=== PATIENT | male | born 1990 | race Caucasian/White ===

== ENCOUNTER 2020-10-18 23:15 | Inpatient (IN) | payer MEDICAID, OTHER ==
[~2020-10-18] VITALS: Ht 177.8 cm; Wt 74.0 kg
[2020-10-18] MEDS ORDERED: ILOP2TAB2 PO (23:29)
[2020-10-18] MEDS ORDERED: NICOTINE POLACRILEX 2 MG LOZENGE PO ONE (23:30)
[2020-10-18 23:36] LABS: BASOPHILS % (AUTO) 0.8 % (0.0-2.0); EOSINOPHILS % (AUTO) 3.3 % (1.0-6.0); HEMATOCRIT 35.9 % (41-53); HEMOGLOBIN 11.7 g/dL (13.5-17.5); LYMPHOCYTES # (AUTO) 1.5 K/uL (1.0-4.8); LYMPHOCYTES % (AUTO) 27.8 % (22.0-44.0); MEAN CORPUSCULAR HEMOGLOBIN 27.4 pg (26.0-34.0); MEAN CORPUSCULAR HGB CONC 32.4 G/dL (31.0-37.0); MEAN CORPUSCULAR VOLUME 85 fL (80-100); MONOCYTES # (AUTO) 0.4 K/uL (0.1-1.0); MONOCYTES % (AUTO) 7.1 % (2.0-9.0); NEUTROPHILS # (AUTO) 3.3 K/uL (1.8-7.7); PLATELET COUNT (AUTO) 211 K/uL (150-450); RED BLOOD CELL COUNT(AUTO) 4.25 MIL/uL (4.50-5.90); RED CELL DISTRIBUTION WIDTH 16.1 % (11.5-14.5)
[2020-10-18 23:46] LABS: ANION GAP 11 mmol/L (8-16); CALCIUM, TOTAL 8.7 mg/dL (8.8-10.5); CARBON DIOXIDE 28 mmol/L (22-29); CHLORIDE 102 mmol/L (98-107); GLOMERULAR FILTR. RATE CALC > 60 mL/min (>60); GLUCOSE,RANDOM 95 mg/dL (70-110); POTASSIUM 3.9 mmol/L (3.5-5.1); SODIUM SERUM 141 mmol/L (136-145); UREA NITROGEN, BLOOD 9 mg/dL (7-18)
[2020-10-18 23:51] LABS: ALANINE AMINOTRANSFERASE 21 U/L (12-78); ALBUMIN 4.1 g/dL (3.4-5.0); ALKALINE PHOSPHATASE 81 U/L (46-116); ASPARTATE AMINOTRANSFERASE 17 U/L (15-37); BILIRUBIN,TOTAL 0.4 mg/dL (0.1-1.0); TOTAL PROTEIN, SERUM 7.2 g/dL (6.4-8.2)
[2020-10-19 00:01] LABS: COVID AG,FIA SOURCE NASOPHARYNGEAL
[2020-10-19 00:02] LABS: AMPHET/METH SCREEN,URINE NEGATIVE (NEGATIVE); BARBITURATE SCREEN, URINE NEGATIVE (NEGATIVE); BENZODIAZEPINES SCREEN,URINE NEGATIVE (NEGATIVE); CANNABINOID SCREEN,URINE NEGATIVE (NEGATIVE); COCAINE SCREEN,URINE NEGATIVE (NEGATIVE); METHADONE SCREEN, URINE NEGATIVE (NEGATIVE); OPIATE SCREEN,URINE NEGATIVE (NEGATIVE)
[2020-10-19 00:04] LABS: PHENCYCLIDINE SCREEN,URINE NEGATIVE (NEGATIVE)
[2020-10-19] MEDS ORDERED: HALOPERIDOL 5 MG TABLET PO PRN (00:30)
[2020-10-19] MEDS ORDERED: ZOLPIDEM TARTRATE 10 MG TABLET PO PRN (00:30)
[2020-10-19 02:48] LABS: APPEARANCE,URINE CLEAR (CLEAR); BILIRUBIN,URINE NEGATIVE (NEGATIVE); GLUCOSE, URINE (UA) NEGATIVE (NEGATIVE); KETONES,URINE NEGATIVE (NEGATIVE); LEUKOCYTE ESTERASE ,URINE NEGATIVE (NEGATIVE); NITRATE,URINE NEGATIVE (NEGATIVE); OCCULT BLOOD,URINE NEGATIVE (NEGATIVE); PH,URINE 6.5 (5.0-8.0); PROTEIN,URINE NEGATIVE (NEGATIVE); UROBILINOGEN,URINE 0.2 mg/dL (<=1.0)
[2020-10-19 04:45] VITALS: BP 113/67
[2020-10-19 08:25] VITALS: BP 132/88
[2020-10-19] MEDS ORDERED: NICOTINE 21 MG/24 HOUR PATCH TD ONE (10:30)
[2020-10-19] MEDS: NICOTINE 21 MG/24 HOUR PATCH TD SCH (11:12)
[2020-10-19] MEDS ORDERED: IBUPROFEN 600 MG TABLET PO PRN (15:30)
[2020-10-19] MEDS ORDERED: BACITRACIN 28 GM OINTMENT TP PRN (15:30)
[2020-10-19] MEDS ORDERED: ONDANSETRON HCL 4 MG TABLET PO PRN (15:30)
[2020-10-19] MEDS ORDERED: LOPERAMIDE HCL 2 MG CAPSULE PO PRN (15:30)
[2020-10-19] MEDS ORDERED: DOCUSATE SODIUM 100 MG CAPSULE PO PRN (15:30)
[2020-10-19] MEDS ORDERED: MAGNESIUM HYDROXIDE SUSPENSION 30 ML UDCUP PO PRN (15:30)
[2020-10-19] MEDS ORDERED: OMEPRAZOLE 20 MG CAPSULE PO PRN (15:30)
[2020-10-19] MEDS ORDERED: ALBUTEROL SULFATE HFA 90 MCG/PUFF 8 GM INHALER IH PRN (15:30)
[2020-10-19] MEDS ORDERED: PETROLATUM,WHITE 28 GM JELLY TP PRN (15:30)
[2020-10-19] MEDS ORDERED: ACETAMINOPHEN 325 MG TABLET PO PRN (15:30)
[2020-10-19] MEDS ORDERED: CloNIDine HCL 0.1 MG TABLET PO PRN (15:30)
[2020-10-19] MEDS: ILOPERIDONE 4 MG TABLET PO SCH (16:31)
[2020-10-19 16:32] VITALS: BP 110/62
[2020-10-19] MEDS: MAG HYDROX/AL HYDROX/SIMETH ES 30 ML SUSPENSION UDCUP PO PRN (17:40)
[2020-10-20 05:49] LABS: CHOL/HDL RATIO 2.7 (4.2-7.3)
[2020-10-20] MEDS: BENZOCAINE/MENTHOL LOZENGE PO PRN ×4 (06:10→19:00)
[2020-10-20] MEDS: ILOPERIDONE 4 MG TABLET PO SCH ×2 (07:53→16:07)
[2020-10-20] MEDS: NICOTINE 21 MG/24 HOUR PATCH TD SCH ×2 (07:53→11:04)
[2020-10-20 08:30] VITALS: BP 138/84
[2020-10-20 16:00] VITALS: BP 118/69
[2020-10-20] MEDS: LORazepam 2 MG TABLET PO PRN (17:42)
[2020-10-21 00:01] VITALS: BP 130/80
[2020-10-21 00:09] VITALS: BP 125/70
[2020-10-21] MEDS: MAG HYDROX/AL HYDROX/SIMETH ES 30 ML SUSPENSION UDCUP PO PRN (00:09)
[2020-10-21] MEDS: ILOPERIDONE 4 MG TABLET PO SCH (08:03)
[2020-10-21] MEDS: NICOTINE 21 MG/24 HOUR PATCH TD SCH (08:07)
[2020-10-21] MEDS: BENZOCAINE/MENTHOL LOZENGE PO PRN (08:14)
[2020-10-21 08:30] VITALS: BP 123/76
[2020-10-21] MEDS: LORazepam 2 MG TABLET PO PRN (09:14)
== END 2020-10-21 12:30 | disposition home or self-care (01) | DRG 750 ==
LOC: EMS 23:21 → 3EI 10-19 00:25
PROVIDERS: ADMIT Psychiatry & Neurology Psychiatry; ATTEND Psychiatry & Neurology Psychiatry
DX: F25.1 Schizoaffective disorder, depressive type (principal); R45.851 Suicidal ideations; Z59.0 Homelessness; K59.00 Constipation, unspecified; F12.10 Cannabis abuse, uncomplicated; Z20.822 Contact with and (suspected) exposure to COVID-19; F41.9 Anxiety disorder, unspecified; G47.00 Insomnia, unspecified; Z88.8 Allergy status to other drugs, medicaments and biological substances; Z79.899 Other long term (current) drug therapy; Z72.0 Tobacco use; Z71.6 Tobacco abuse counseling; Z71.51 Drug abuse counseling and surveillance of drug abuser
CPT/HCPCS: 80053; 80061; 81003; 85025; 99285; A9575; G0480; J3535

== ENCOUNTER 2020-11-15 17:51 | Inpatient (IN) | payer MEDICAID, OTHER ==
[~2020-11-15] VITALS: Ht 167.6 cm; Wt 70.8 kg
[~2020-11-15 17:51] MED LIST: ILOP2TAB2 PO
[2020-11-15 18:27] LABS: EOSINOPHILS % (AUTO) 4.8 % (1.0-6.0); HEMATOCRIT 36.8 % (41-53); HEMOGLOBIN 11.9 g/dL (13.5-17.5); LYMPHOCYTES # (AUTO) 1.2 K/uL (1.0-4.8); LYMPHOCYTES % (AUTO) 24.1 % (22.0-44.0); MEAN CORPUSCULAR HEMOGLOBIN 27.1 pg (26.0-34.0); MEAN CORPUSCULAR HGB CONC 32.4 G/dL (31.0-37.0); MEAN CORPUSCULAR VOLUME 84 fL (80-100); MONOCYTES # (AUTO) 0.3 K/uL (0.1-1.0); MONOCYTES % (AUTO) 5.9 % (2.0-9.0); NEUTROPHILS # (AUTO) 3.1 K/uL (1.8-7.7); NEUTROPHILS % (AUTO) 64.2 % (40.0-70.0); PLATELET COUNT (AUTO) 218 K/uL (150-450); RED CELL DISTRIBUTION WIDTH 15.6 % (11.5-14.5)
[2020-11-15 18:36] LABS: ANION GAP 16 mmol/L (8-16); CALCIUM, TOTAL 9.3 mg/dL (8.8-10.5); CARBON DIOXIDE 29 mmol/L (22-29); CHLORIDE 102 mmol/L (98-107); CREATININE 1.19 mg/dL (0.60-1.30); GLOMERULAR FILTR. RATE CALC > 60 mL/min (>60); GLUCOSE,RANDOM 108 mg/dL (70-110); POTASSIUM 4.6 mmol/L (3.5-5.1); SODIUM SERUM 147 mmol/L (136-145); UREA NITROGEN, BLOOD 12 mg/dL (7-18)
[2020-11-15 18:42] LABS: ALANINE AMINOTRANSFERASE 20 U/L (12-78); ALBUMIN 4.1 g/dL (3.4-5.0); ALKALINE PHOSPHATASE 74 U/L (46-116); ASPARTATE AMINOTRANSFERASE 17 U/L (15-37); BILIRUBIN,TOTAL 0.5 mg/dL (0.1-1.0); TOTAL PROTEIN, SERUM 7.5 g/dL (6.4-8.2)
[2020-11-15 19:18] LABS: AMPHET/METH SCREEN,URINE NEGATIVE (NEGATIVE); BARBITURATE SCREEN, URINE POSITIVE (NEGATIVE); BENZODIAZEPINES SCREEN,URINE NEGATIVE (NEGATIVE); CANNABINOID SCREEN,URINE NEGATIVE (NEGATIVE); COCAINE SCREEN,URINE NEGATIVE (NEGATIVE); METHADONE SCREEN, URINE NEGATIVE (NEGATIVE); OPIATE SCREEN,URINE NEGATIVE (NEGATIVE); PHENCYCLIDINE SCREEN,URINE NEGATIVE (NEGATIVE)
[2020-11-15] MEDS ORDERED: NICOTINE 7 MG/24 HOUR PATCH TD ONE (20:00)
[2020-11-15] MEDS ORDERED: DiphenhydrAMINE HCL 25 MG CAPSULE PO ONE (20:15)
[2020-11-15] MEDS ORDERED: HALOPERIDOL 5 MG TABLET PO ONE (20:15)
[2020-11-15] MEDS ORDERED: LORazepam 2 MG TABLET PO ONE (20:15)
[2020-11-15 21:16] LABS: COVID AG,FIA SOURCE NASOPHARYNGEAL
[2020-11-15] MEDS ORDERED: ONDANSETRON HCL 4 MG TABLET PO ONE (23:00)
[2020-11-16] MEDS: ZOLPIDEM TARTRATE 10 MG TABLET PO PRN (01:35)
[2020-11-16 02:44] LABS: APPEARANCE,URINE CLEAR (CLEAR); BILIRUBIN,URINE NEGATIVE (NEGATIVE); GLUCOSE, URINE (UA) NEGATIVE (NEGATIVE); KETONES,URINE 15 mg/dL (NEGATIVE); LEUKOCYTE ESTERASE ,URINE MODERATE (NEGATIVE); NITRATE,URINE NEGATIVE (NEGATIVE); OCCULT BLOOD,URINE NEGATIVE (NEGATIVE); PH,URINE 5.5 (5.0-8.0); PROTEIN,URINE NEGATIVE (NEGATIVE); UROBILINOGEN,URINE 0.2 mg/dL (<=1.0)
[2020-11-16 03:22] LABS: BACTERIA,URINE Rare /HPF (None Seen); SQUAMOUS EPITHELIAL CELL,UR Rare /LPF (None Seen)
[2020-11-16 10:03] LABS: CHOL/HDL RATIO 2.3 (4.2-7.3)
[2020-11-16] MEDS: LORazepam 2 MG TABLET PO PRN (12:50)
[2020-11-16] MEDS: HALOPERIDOL 5 MG TABLET PO PRN (12:51)
[2020-11-16] MEDS ORDERED: NICOTINE POLACRILEX 4 MG LOZENGE PO ONE (16:30)
[2020-11-16 20:11] VITALS: BP 141/72
[2020-11-17] MEDS ORDERED: ALBUTEROL SULFATE HFA 90 MCG/PUFF 8 GM INHALER IH PRN (06:15)
[2020-11-17] MEDS ORDERED: MAGNESIUM HYDROXIDE SUSPENSION 30 ML UDCUP PO PRN (06:15)
[2020-11-17] MEDS ORDERED: OMEPRAZOLE 20 MG CAPSULE PO PRN (06:15)
[2020-11-17] MEDS ORDERED: ONDANSETRON HCL 4 MG TABLET PO PRN (06:15)
[2020-11-17] MEDS ORDERED: BACITRACIN 28 GM OINTMENT TP PRN (06:15)
[2020-11-17] MEDS ORDERED: PETROLATUM,WHITE 28 GM JELLY TP PRN (06:15)
[2020-11-17] MEDS ORDERED: LOPERAMIDE HCL 2 MG CAPSULE PO PRN (06:15)
[2020-11-17] MEDS ORDERED: ACETAMINOPHEN 325 MG TABLET PO PRN (06:15)
[2020-11-17] MEDS ORDERED: DOCUSATE SODIUM 100 MG CAPSULE PO PRN (06:15)
[2020-11-17] MEDS ORDERED: CloNIDine HCL 0.1 MG TABLET PO PRN (06:15)
[2020-11-17] MEDS ORDERED: IBUPROFEN 600 MG TABLET PO PRN (06:15)
[2020-11-17] MEDS ORDERED: MAG HYDROX/AL HYDROX/SIMETH ES 30 ML SUSPENSION UDCUP PO PRN (06:15)
[2020-11-17] MEDS ORDERED: BENZOCAINE/MENTHOL LOZENGE PO PRN (06:15)
[2020-11-17 08:00] VITALS: BP 132/70
[2020-11-17] MEDS: ILOPERIDONE 4 MG TABLET PO SCH ×2 (12:12→16:21)
[2020-11-17] MEDS: NICOTINE 7 MG/24 HOUR PATCH TD SCH (12:12)
[2020-11-17] MEDS: LORazepam 2 MG TABLET PO PRN ×2 (14:33→18:54)
[2020-11-17 16:12] VITALS: BP 121/66
[2020-11-17] MEDS: ZOLPIDEM TARTRATE 10 MG TABLET PO PRN (19:59)
[2020-11-18 08:00] VITALS: BP 131/59
[2020-11-18] MEDS: ILOPERIDONE 4 MG TABLET PO SCH ×2 (09:47→16:26)
[2020-11-18] MEDS: NICOTINE 7 MG/24 HOUR PATCH TD SCH (09:50)
[2020-11-18] MEDS: HALOPERIDOL 5 MG TABLET PO PRN ×2 (11:29→18:31)
[2020-11-18 16:15] VITALS: BP 113/56
[2020-11-18] MEDS: ZOLPIDEM TARTRATE 10 MG TABLET PO PRN (20:16)
[2020-11-19 08:00] VITALS: BP 98/64
[2020-11-19] MEDS: ILOPERIDONE 4 MG TABLET PO SCH ×2 (10:07→16:04)
[2020-11-19] MEDS: NICOTINE 7 MG/24 HOUR PATCH TD SCH (10:08)
[2020-11-19] MEDS: HALOPERIDOL 5 MG TABLET PO PRN ×2 (16:03→20:09)
[2020-11-19 16:20] VITALS: BP 123/73
[2020-11-19] MEDS: ZOLPIDEM TARTRATE 10 MG TABLET PO PRN (20:09)
[2020-11-20 08:28] VITALS: BP 116/64
[2020-11-20] MEDS: NICOTINE 7 MG/24 HOUR PATCH TD SCH (08:41)
[2020-11-20] MEDS: ILOPERIDONE 4 MG TABLET PO SCH (08:41)
== END 2020-11-20 16:15 | disposition home or self-care (01) | DRG 750 ==
LOC: EMS 17:53 → 3EI 11-16 18:55
PROVIDERS: ADMIT Psychiatry & Neurology Psychiatry; ATTEND Psychiatry & Neurology Psychiatry
DX: F25.1 Schizoaffective disorder, depressive type (principal); R45.851 Suicidal ideations; F41.9 Anxiety disorder, unspecified; K59.00 Constipation, unspecified; G47.00 Insomnia, unspecified; Z88.1 Allergy status to other antibiotic agents; Z20.822 Contact with and (suspected) exposure to COVID-19
CPT/HCPCS: 80053; 80061; 81001; 85025; 87081; 87086; 99285; A9575; G0480; Q0162

== ENCOUNTER 2022-04-17 01:32 | Inpatient (IN) | payer MEDICAID ==
[~2022-04-17] VITALS: Ht 177.8 cm; Wt 74.2 kg
[2022-04-17 02:16] LABS: BASOPHILS % (AUTO) 0.6 % (0.0-2.0); EOSINOPHILS % (AUTO) 1.5 % (1.0-6.0); HEMATOCRIT 40.2 % (41-53); HEMOGLOBIN 13.4 g/dL (13.5-17.5); LYMPHOCYTES # (AUTO) 1.2 K/uL (1.0-4.8); LYMPHOCYTES % (AUTO) 20.6 % (22.0-44.0); MEAN CORPUSCULAR HEMOGLOBIN 28.2 pg (26.0-34.0); MEAN CORPUSCULAR HGB CONC 33.3 G/dL (31.0-37.0); MEAN CORPUSCULAR VOLUME 85 fL (80-100); MONOCYTES # (AUTO) 0.5 K/uL (0.1-1.0); MONOCYTES % (AUTO) 8.8 % (2.0-9.0); NEUTROPHILS # (AUTO) 4.1 K/uL (1.8-7.7); NEUTROPHILS % (AUTO) 68.5 % (40.0-70.0); PLATELET COUNT (AUTO) 294 K/uL (150-450); RED BLOOD CELL COUNT(AUTO) 4.75 MIL/uL (4.50-5.90); RED CELL DISTRIBUTION WIDTH 15.3 % (11.5-14.5)
[2022-04-17 02:23] LABS: ANION GAP 10 mmol/L (8-16); CARBON DIOXIDE 31 mmol/L (22-29); CHLORIDE 99 mmol/L (98-107); CREATININE 1.12 mg/dL (0.60-1.30); GLUCOSE,RANDOM 113 mg/dL (70-110); POTASSIUM 4.3 mmol/L (3.5-5.1); SODIUM SERUM 140 mmol/L (136-145); UREA NITROGEN, BLOOD 8 mg/dL (7-18)
[2022-04-17 02:28] LABS: ALANINE AMINOTRANSFERASE 109 U/L (12-78); ALBUMIN 4.2 g/dL (3.4-5.0); ALKALINE PHOSPHATASE 87 U/L (46-116); ASPARTATE AMINOTRANSFERASE 239 U/L (15-37); BILIRUBIN,TOTAL 0.3 mg/dL (0.1-1.0); TOTAL PROTEIN, SERUM 8.1 g/dL (6.4-8.2)
[2022-04-17 02:33] LABS: GLOMERULAR FILTR. RATE CALC > 60 mL/min (>60)
[2022-04-17 03:09] LABS: COVID AG,FIA SOURCE NASOPHARYNGEAL
[2022-04-17 03:19] LABS: AMPHET/METH SCREEN,URINE POSITIVE (NEGATIVE); BARBITURATE SCREEN, URINE NEGATIVE (NEGATIVE); BENZODIAZEPINES SCREEN,URINE NEGATIVE (NEGATIVE); CANNABINOID SCREEN,URINE POSITIVE (NEGATIVE); COCAINE SCREEN,URINE NEGATIVE (NEGATIVE); METHADONE SCREEN, URINE NEGATIVE (NEGATIVE); OPIATE SCREEN,URINE NEGATIVE (NEGATIVE)
[2022-04-17 03:21] LABS: PHENCYCLIDINE SCREEN,URINE NEGATIVE (NEGATIVE)
[2022-04-17] MEDS ORDERED: ONDANSETRON HCL 4 MG TABLET PO ONE (03:30)
[2022-04-17] MEDS ORDERED: HALOPERIDOL 5 MG TABLET PO PRN (03:30)
[2022-04-17] MEDS: LORazepam 2 MG TABLET PO PRN ×2 (04:26→14:55)
[2022-04-17] MEDS ORDERED: NICOTINE 21 MG/24 HOUR PATCH TD ONE (15:15)
[2022-04-18] MEDS ORDERED: ONDANSETRON HCL 4 MG TABLET PO ONE (00:15)
[2022-04-18] MEDS: ZOLPIDEM TARTRATE 10 MG TABLET PO PRN (00:59)
[2022-04-18] MEDS: LORazepam 2 MG TABLET PO PRN (13:13)
[2022-04-19 13:06] VITALS: BP 150/79
[2022-04-19] MEDS ORDERED: PNEUMOCOCCAL VACCINE POLYVALENT 0.5 ML VIAL [PPSV23] IM. ONE (15:00)
[2022-04-19 16:30] VITALS: BP 145/72
[2022-04-19] MEDS: LORazepam 2 MG TABLET PO PRN (20:50)
[2022-04-19] MEDS ORDERED: ALBUTEROL SULFATE HFA 90 MCG/PUFF 8 GM INHALER IH PRN (21:30)
[2022-04-19] MEDS ORDERED: GuaiFENesin/D-METHORPHAN [SUGAR-FREE] 200-20MG/10 ML SYRUP UDCUP PO PRN (21:30)
[2022-04-19] MEDS ORDERED: PETROLATUM,WHITE 28 GM JELLY TP PRN (21:30)
[2022-04-19] MEDS ORDERED: IBUPROFEN 400 MG TABLET PO PRN (21:30)
[2022-04-19] MEDS ORDERED: NICOTINE 14 MG/24 HOUR PATCH TD PRN (21:30)
[2022-04-19] MEDS ORDERED: CloNIDine HCL 0.1 MG TABLET PO PRN (21:30)
[2022-04-19] MEDS ORDERED: MAGNESIUM HYDROXIDE SUSPENSION 30 ML UDCUP PO PRN (21:30)
[2022-04-19] MEDS ORDERED: MAG HYDROX/AL HYDROX/SIMETH ES 30 ML SUSPENSION UDCUP PO PRN (21:30)
[2022-04-19] MEDS ORDERED: ACETAMINOPHEN 325 MG TABLET PO PRN (21:30)
[2022-04-19] MEDS ORDERED: ONDANSETRON HCL 4 MG TABLET PO PRN (21:30)
[2022-04-19] MEDS ORDERED: DOCUSATE SODIUM 100 MG CAPSULE PO PRN (21:30)
[2022-04-19] MEDS ORDERED: LOPERAMIDE HCL 2 MG CAPSULE PO PRN (21:30)
[2022-04-19] MEDS: ZOLPIDEM TARTRATE 10 MG TABLET PO PRN (21:43)
[2022-04-20 07:24] LABS: EOSINOPHILS % (AUTO) 7.6 % (1.0-6.0); HEMATOCRIT 38.6 % (41-53); HEMOGLOBIN 12.4 g/dL (13.5-17.5); LYMPHOCYTES # (AUTO) 1.3 K/uL (1.0-4.8); LYMPHOCYTES % (AUTO) 29.1 % (22.0-44.0); MEAN CORPUSCULAR HEMOGLOBIN 27.6 pg (26.0-34.0); MEAN CORPUSCULAR HGB CONC 32.2 G/dL (31.0-37.0); MEAN CORPUSCULAR VOLUME 86 fL (80-100); MONOCYTES # (AUTO) 0.4 K/uL (0.1-1.0); MONOCYTES % (AUTO) 8.8 % (2.0-9.0); NEUTROPHILS # (AUTO) 2.4 K/uL (1.8-7.7); NEUTROPHILS % (AUTO) 53.5 % (40.0-70.0); PLATELET COUNT (AUTO) 253 K/uL (150-450); RED CELL DISTRIBUTION WIDTH 15.6 % (11.5-14.5)
[2022-04-20 07:32] LABS: HEMOGLOBIN A1C 5.5 % (3.8-5.6)
[2022-04-20 08:01] LABS: ALANINE AMINOTRANSFERASE 81 U/L (12-78); ALBUMIN 3.6 g/dL (3.4-5.0); ALKALINE PHOSPHATASE 83 U/L (46-116); ANION GAP 6 mmol/L (8-16); ASPARTATE AMINOTRANSFERASE 139 U/L (15-37); BILIRUBIN,TOTAL 0.5 mg/dL (0.1-1.0); CALCIUM, TOTAL 8.9 mg/dL (8.8-10.5); CARBON DIOXIDE 30 mmol/L (22-29); CHLORIDE 103 mmol/L (98-107); CREATININE 1.05 mg/dL (0.60-1.30); GLUCOSE,RANDOM 91 mg/dL (70-110); POTASSIUM 4.2 mmol/L (3.5-5.1); SODIUM SERUM 139 mmol/L (136-145); THYROID STIMULATING HORMONE 1.17 uIU/mL (0.36-3.74); TOTAL PROTEIN, SERUM 6.7 g/dL (6.4-8.2); UREA NITROGEN, BLOOD 12 mg/dL (7-18)
[2022-04-20 08:08] LABS: GLOMERULAR FILTR. RATE CALC > 60 mL/min (>60)
[2022-04-20 08:27] VITALS: BP 131/82
[2022-04-20 12:10] LABS: CHOL/HDL RATIO 3.4 (4.2-7.3); CHOLESTEROL 165 mg/dL (131-200); HDL CHOLESTEROL 49 mg/dL (40-60); LDL CHOL (CALC.) 104 mg/dL (0-130); TRIGLYCERIDES 61 mg/dL (15-150)
[2022-04-20] MEDS ORDERED: CloNIDine HCL 0.1 MG TABLET PO PRN (15:15)
[2022-04-20] MEDS ORDERED: MAG HYDROX/AL HYDROX/SIMETH ES 30 ML SUSPENSION UDCUP PO PRN (15:15)
[2022-04-20] MEDS ORDERED: IBUPROFEN 400 MG TABLET PO PRN (15:15)
[2022-04-20] MEDS ORDERED: ACETAMINOPHEN 325 MG TABLET PO PRN (15:15)
[2022-04-20] MEDS ORDERED: ONDANSETRON HCL 4 MG TABLET PO PRN (15:15)
[2022-04-20] MEDS ORDERED: GuaiFENesin/D-METHORPHAN [SUGAR-FREE] 200-20MG/10 ML SYRUP UDCUP PO PRN (15:15)
[2022-04-20] MEDS ORDERED: PETROLATUM,WHITE 28 GM JELLY TP PRN (15:15)
[2022-04-20] MEDS ORDERED: ALBUTEROL SULFATE HFA 90 MCG/PUFF 8 GM INHALER IH PRN (15:15)
[2022-04-20] MEDS ORDERED: DOCUSATE SODIUM 100 MG CAPSULE PO PRN (15:15)
[2022-04-20] MEDS ORDERED: MAGNESIUM HYDROXIDE SUSPENSION 30 ML UDCUP PO PRN (15:15)
[2022-04-20] MEDS ORDERED: LOPERAMIDE HCL 2 MG CAPSULE PO PRN (15:15)
[2022-04-20] MEDS ORDERED: NICOTINE 14 MG/24 HOUR PATCH TD PRN (15:15)
[2022-04-20 16:17] VITALS: BP 123/80
[2022-04-20] MEDS: LORazepam 2 MG TABLET PO PRN (16:52)
[2022-04-20] MEDS: BENZOCAINE/MENTHOL LOZENGE PO PRN (16:54)
[2022-04-20] MEDS: ZOLPIDEM TARTRATE 10 MG TABLET PO PRN (21:15)
[2022-04-21] MEDS: PALIPERIDONE 3 MG ER TABLET PO SCH (09:07)
[2022-04-21 09:30] VITALS: BP 129/74
[2022-04-21] MEDS: BENZOCAINE/MENTHOL LOZENGE PO PRN (12:32)
[2022-04-21 16:04] VITALS: BP 124/72
[2022-04-21] MEDS: LORazepam 2 MG TABLET PO PRN ×2 (16:04→21:00)
[2022-04-21 16:35] VITALS: BP 108/52
[2022-04-21] MEDS: ZOLPIDEM TARTRATE 10 MG TABLET PO PRN (22:01)
[2022-04-22] MEDS: PALIPERIDONE 3 MG ER TABLET PO SCH (08:09)
[2022-04-22 09:57] VITALS: BP 102/59
[2022-04-22] MEDS: BENZOCAINE/MENTHOL LOZENGE PO PRN (10:49)
[2022-04-22] MEDS: LORazepam 2 MG TABLET PO PRN (10:50)
[2022-04-22] MEDS ORDERED: PALI3TAB14 PO (13:40)
[2022-04-23] MEDS ORDERED: PALI3TAB14 PO (01:57)
== END 2022-04-22 15:05 | disposition home or self-care (01) | DRG 750 ==
LOC: EMS 01:33 → 3EI 04-19 13:40
PROVIDERS: ADMIT Psychiatry & Neurology Child & Adolescent Psychiatry; ATTEND Psychiatry & Neurology Child & Adolescent Psychiatry
DX: F25.1 Schizoaffective disorder, depressive type (principal); R45.851 Suicidal ideations; Z91.14 Patient's other noncompliance with medication regimen; F10.10 Alcohol abuse, uncomplicated; Z20.822 Contact with and (suspected) exposure to COVID-19; F12.10 Cannabis abuse, uncomplicated; F15.10 Other stimulant abuse, uncomplicated; G47.00 Insomnia, unspecified; Z91.51 Personal history of suicidal behavior; Z88.8 Allergy status to other drugs, medicaments and biological substances
CPT/HCPCS: 80053; 80061; 83036; 84443; 85025; 87081; 99285; G0480; Q0162

== ENCOUNTER 2022-04-24 10:26 | Emergency (ER) | payer MEDICAID, OTHER ==
[~2022-04-24] VITALS: Ht 177.8 cm; Wt 76.4 kg
[~2022-04-24 10:26] MED LIST changes: -ILOP2TAB2 PO; +PALI3TAB14 PO
[2022-04-24 10:45] VITALS: BP 145/97
[2022-04-24] MEDS ORDERED: LORazepam 1 MG TABLET PO ONE ×2 (11:45→13:00)
[2022-04-24 12:01] LABS: BASOPHILS % (AUTO) 0.5 % (0.0-2.0); EOSINOPHILS % (AUTO) 0.8 % (1.0-6.0); HEMATOCRIT 42.8 % (41-53); HEMOGLOBIN 13.8 g/dL (13.5-17.5); LYMPHOCYTES % (AUTO) 14.5 % (22.0-44.0); MEAN CORPUSCULAR HEMOGLOBIN 27.7 pg (26.0-34.0); MEAN CORPUSCULAR HGB CONC 32.3 G/dL (31.0-37.0); MEAN CORPUSCULAR VOLUME 86 fL (80-100); MONOCYTES # (AUTO) 0.4 K/uL (0.1-1.0); MONOCYTES % (AUTO) 5.6 % (2.0-9.0); NEUTROPHILS # (AUTO) 5.5 K/uL (1.8-7.7); NEUTROPHILS % (AUTO) 78.6 % (40.0-70.0); PLATELET COUNT (AUTO) 286 K/uL (150-450); RED BLOOD CELL COUNT(AUTO) 4.99 MIL/uL (4.50-5.90); RED CELL DISTRIBUTION WIDTH 15.9 % (11.5-14.5)
[2022-04-24 12:09] LABS: ANION GAP 5 mmol/L (8-16); CALCIUM, TOTAL 9.7 mg/dL (8.8-10.5); CARBON DIOXIDE 30 mmol/L (22-29); CHLORIDE 99 mmol/L (98-107); CREATININE 1.13 mg/dL (0.60-1.30); GLUCOSE,RANDOM 142 mg/dL (70-110); POTASSIUM 4.3 mmol/L (3.5-5.1); SODIUM SERUM 134 mmol/L (136-145); UREA NITROGEN, BLOOD 11 mg/dL (7-18)
[2022-04-24 12:15] LABS: ALANINE AMINOTRANSFERASE 56 U/L (12-78); ALBUMIN 4.4 g/dL (3.4-5.0); ALKALINE PHOSPHATASE 95 U/L (46-116); ASPARTATE AMINOTRANSFERASE 32 U/L (15-37); BILIRUBIN,TOTAL 0.5 mg/dL (0.1-1.0); TOTAL PROTEIN, SERUM 8.3 g/dL (6.4-8.2)
[2022-04-24 12:22] LABS: GLOMERULAR FILTR. RATE CALC > 60 mL/min (>60)
[2022-04-24] MEDS ORDERED: HYDR50CA7 PO (12:55)
== END 2022-04-24 13:08 | disposition home or self-care (01) ==
LOC: EMS 10:30
DX: F41.9 Anxiety disorder, unspecified (principal); F15.10 Other stimulant abuse, uncomplicated; F25.1 Schizoaffective disorder, depressive type; F12.90 Cannabis use, unspecified, uncomplicated; Z88.8 Allergy status to other drugs, medicaments and biological substances
CPT/HCPCS: 99283; 80053; 85025; 36415; G0480